=== PATIENT | female | born 2000 | race Caucasian/White ===

== ENCOUNTER → 2022-07-13 14:45 | Outpatient (BNVA) | payer OTHER, BC, SELFPAY | PROVIDERS: Visit Provider Nurse Practitioner Women's Health | DX: Z01.419 Encounter for gynecological examination (general) (routine) without abnormal findings (principal); Z30.9 Encounter for contraceptive management, unspecified; Z30.430 Encounter for insertion of intrauterine contraceptive device | CPT/HCPCS: 81025; 88175 ==

== ENCOUNTER → 2024-08-13 10:30 | Outpatient (BNVA) | payer OTHER, SELFPAY | PROVIDERS: PCP Nurse Practitioner Family; Visit Provider Nurse Practitioner Family | DX: R03.0 Elevated blood-pressure reading, without diagnosis of hypertension (principal) | CPT/HCPCS: 80053; 80061; 85025 ==